=== PATIENT | female | born 1985 | race Caucasian/White ===

== ENCOUNTER 2016-09-20 16:07 | Emergency (ER) | payer OTHER | END 2016-09-20 18:00 | disposition home or self-care (01) | LOC: ER 16:07 | DX: J06.9 Acute upper respiratory infection, unspecified (principal); R05 Cough; M79.1 Myalgia; F17.210 Nicotine dependence, cigarettes, uncomplicated; F11.21 Opioid dependence, in remission; Z97.5 Presence of (intrauterine) contraceptive device | CPT/HCPCS: 87400; 99283 ==